=== PATIENT | male | born 1940 | race Caucasian/White ===

== ENCOUNTER → 2016-11-17 | Outpatient (CLI) | payer MEDICARE | LOC: OD 15:44 | PROVIDERS: ATTEND Urology | DX: N40.0 Benign prostatic hyperplasia without lower urinary tract symptoms (principal) | CPT/HCPCS: 36415; 84153 ==

== ENCOUNTER → 2018-01-17 | Outpatient (CLI) | payer MEDICARE | LOC: OD 10:02 | PROVIDERS: ATTEND Urology | DX: N40.1 Benign prostatic hyperplasia with lower urinary tract symptoms (principal); R33.8 Other retention of urine | CPT/HCPCS: 36415; 84153 ==

== ENCOUNTER 2018-07-04 23:12 | Emergency (ER) | payer MEDICARE ==
--- NOTE | 2018-07-04 23:50 | RADIOLOGY REPORT (SQ) ---
2 VIEWS OF LEFT RIBS AND AP CHEST HISTORY: Rib pain. COMPARISON: None. FINDINGS/IMPRESSION: Nondisplaced fracture of the left posterior 6th and 7th ribs. The surrounding lungs are clear. No pneumothorax or pleural effusions are seen. IMPRESSION: Nondisplaced fractures of the left posterior 6th and 7th ribs.
[2018-07-05] MEDS ORDERED: HYDROCODONE/ACETAMINOPHEN 10-325 MG TABLET PO ONE (00:12)
[2018-07-05 01:09] LABS: ABSOLUTE EOSINOPHILS # (AUTO) 0.2 10^3/uL (0.0-0.6); ABSOLUTE LYMPHOCYTES (AUTO) 1.5 10^3/uL (0.5-4.7); ABSOLUTE MONOCYTES (AUTO) 0.8 10^3/uL (0.1-1.4); ABSOLUTE NEUT (AUTO) 6.1 10^3/uL (1.7-8.2); BASOPHILS % (AUTO) 0.5 % (0-2); EOSINOPHILS % (AUTO) 2.5 % (0-6); HEMATOCRIT 47.1 % (37.9-51.0); HEMOGLOBIN 16.3 g/dL (13.5-17.0); LYMPHOCYTES % (AUTO) 16.9 % (13-45); MEAN CORPUSCULAR HEMOGLOBIN 30.8 pg (27.0-33.4); MEAN CORPUSCULAR HGB CONC 34.7 g/dL (32.0-36.0); MEAN CORPUSCULAR VOLUME 89 fl (80-97); MONOCYTES % (AUTO) 9.5 % (3-13); PLATELET COUNT 289 10^3/uL (150-450); RED CELL DISTRIBUTION WIDTH 14.1 % (11.5-14.0); SEGMENTED NEUTROPHILS % (AUTO) 70.6 % (42-78); TOTAL CELLS COUNTED % (AUTO) 100 %; WHITE BLOOD COUNT 8.7 10^3/uL (4.0-10.5)
[2018-07-05 01:28] LABS: ALANINE AMINOTRANSFERASE 43 U/L (21-72); ALKALINE PHOSPHATASE 57 U/L (38-126); ANION GAP 10 (5-19); ASPARTATE AMINO TRANSFERASE 38 U/L (17-59); BILIRUBIN,DIRECT 0.3 mg/dL (0.0-0.4); BILIRUBIN,TOTAL 1.5 mg/dL (0.2-1.3); BLOOD UREA NITROGEN 25 mg/dL (7-20); CALCIUM 9.6 mg/dL (8.4-10.2); CARBON DIOXIDE 29 mmol/L (22-30); CHLORIDE 99 mmol/L (98-107); GLUCOSE 105 mg/dL (75-110); SODIUM 138.2 mmol/L (137-145); TOTAL PROTEIN 6.9 g/dL (6.3-8.2)
--- NOTE | 2018-07-05 02:11 | RADIOLOGY REPORT (SQ) ---
EXAM DESCRIPTION: CT CHEST WITH IV CONTRAST COMPLETED DATE/TME: 07/05/2018 00:37 CLINICAL HISTORY: 78 years, Male, fall, rib fx, on blood thinners COMPARISON: None. TECHNIQUE: Axial CT images of the chest were obtained after administration of IV contrast. DL 1242 Images stored on PACS. All CT scanners at this facility use dose modulation, iterative reconstruction, and/or weight based dosing when appropriate to reduce radiation dose to as low as reasonably achievable (ALARA). [facility]: Dose Right [facility]: CareDose [facility]: Dose Right [facility]: Teradose 4D [facility]: [employer] LIMITATIONS: None. FINDINGS: Upper abdomen: Partially imaged. Cholelithiasis. A left renal cyst is partially visualized. Thoracic aorta: Unremarkable. Heart: Atherosclerotic calcifications of the coronary arteries Mediastinum: No pathologic sized middle mediastinal lymphadenopathy. Tracheobronchial tree: Unremarkable. Lungs: Lobar consolidation: Negative. Pleural effusion: Negative. Pneumothorax: Negative. Other: Negative. Bones: There are nondisplaced fractures involving the left sixth and seventh ribs. IMPRESSION: Nondisplaced fractures involving the left ribs with no underlying pulmonary contusion or pneumothorax. Cholelithiasis. TECHNICAL DOCUMENTATION: Quality ID # [id number]: Final reports with documentation of one or more dose reduction techniques (e.g., Automated exposure control, adjustment of the mA and/or kV according to patient size, use of iterative reconstruction technique) copyright 2011 [employer]- All Rights Reserved
--- NOTE | 2018-07-05 02:25 | ER Document Report ---
ED Fall - General Chief Complaint: Fall Injury Stated Complaint: FALL/LEFT SIDE PAIN Time Seen by Provider: 07/04/18 23:37 Notes: Patient is a 70-year-old male presents to the emergency department complaining of left rib pain. Patient states he tripped and fell onto the concrete 2 days ago landing on his left side. Patient states he has had increased pain ever since. States it hurts to take a deep breath or cough. Patient denies hitting his head, neck, back. States his only pain is in his left anterior ribs. Past medical history: COPD, hypertension, diabetes, hyperlipidemia chronic back pain, H medications: Eliquis, Symbicort, Spiriva, HCTZ, omeprazole, losartan, simvastatin, morphine allergies: None TRAVEL OUTSIDE OF THE [place] IN LAST 30 DAYS: No - Related data Allergies/Adverse Reactions: No Known Allergies Allergy (Verified 06/24/15 17:52) Past Medical History - General Information source: Patient - Social History Smoking Status: Former Smoker Family History: Arthritis Patient has suicidal ideation: No Patient has homicidal ideation: No - Past Medical History Cardiac Medical History: Reports: Hx Atrial Fibrillation, Hx Congestive Heart Failure - 4 yrs ago, Hx Coronary Artery Disease, Hx Heart Attack - Small, Hx Hypercholesterolemia, Hx Hypertension - controlled with meds Pulmonary Medical History: Reports: Hx COPD, Hx Sleep Apnea Neurological Medical History: Renal/ Medical History: Denies: Hx Peritoneal Dialysis Malignancy Medical History: Reports Hx Prostate Cancer GI Medical History: Reports: Hx Gastroesophageal Reflux Disease, Hx Colonoscopy, Hx Endoscopy Musculoskeletal Medical History: Reports Hx Musculoskeletal Deformity, Reports Hx Musculoskeletal Trauma Traumatic Medical History: Reports: Hx Fractures Infectious Medical History: Past Surgical History: Reports: Hx Genitourinary Surgery - Partial prostatectomy, patient circumcised himself so that he had to have m, Hx Oral Surgery - Jaw surgery, Hx Orthopedic Surgery - MULTIPLE JOINT REPLACEMENTS bilateral knees left hip left shoulder - Immunizations Hx Diphtheria, Pertussis, Tetanus Vaccination: Yes - "6 years ago" Review of Systems - Review of Systems Constitutional: No symptoms reported EENT: No symptoms reported Cardiovascular: See HPI Respiratory: No symptoms reported Gastrointestinal: No symptoms reported Genitourinary: No symptoms reported Male Genitourinary: No symptoms reported Musculoskeletal: See HPI Skin: No symptoms reported Hematologic/Lymphatic: No symptoms reported Neurological/Psychological: No symptoms reported Physical Exam - Vital signs Vitals: Temp Pulse Resp BP Pulse Ox 97.7 F 72 16 143/76 H 92 07/04/18 23:18 18 23:18 18 23:18 18 23:18 07/04/18 23:18 - Notes Notes: GENERAL: Alert, interacts well. No acute distress. HEAD: Normocephalic, atraumatic. EYES: Pupils equal, round, and reactive to light. Extraocular movements intact. ENT: Oral mucosa moist, tongue midline. NECK: Full range of motion. Supple. Trachea midline. LUNGS: Clear to auscultation bilaterally, no wheezes, rales, or rhonchi. No respiratory distress. HEART: Regular rate and rhythm. No murmur Chest: No crepitus felt, no erythema or ecchymosis noted to chest anterior posterior. No paradoxical motion noted upon deep inspiration. ABDOMEN: Soft, non-tender. Non-distended. Bowel sounds present in all 4 quadrants. EXTREMITIES: Moves all 4 extremities spontaneously. No edema, normal radial and dorsalis pedis pulses bilaterally. No cyanosis. BACK: no cervical, thoracic, lumbar midline tenderness. No saddle anesthesia, normal distal neurovascular exam. NEUROLOGICAL: Alert and oriented x3. Normal speech. cranial nerves II through XII grossly intact PSYCH: Normal affect, normal mood. SKIN: Warm, dry, normal turgor. No rashes or lesions noted. Course - Re-evaluation Re-evalutation: 07/05/18 02:25 Patient's x-ray did show signs of rib fractures. Due to patient age, fact that he has on Eliquis, the fact that he does have rib fractures a CT chest was ordered. 07/05/18 02:26 CT chest shows consistent sixth and seventh left nondisplaced rib fractures. Shows no signs of pulmonary contusion or pneumothorax. Patient states after medications in the emergency room he no longer has any pain taking it deep breath or upon coughing. Discussed with patient at length criteria to admit him to the hospital for pulmonary toilet. Patient is very adamant about not being admitted. States he will return to the emergency room for any other concerning symptoms. Discussed need to follow-up with primary care provider in the next 24-48 hours. Patient's pulse oximetry is 95% with a good Pleth as I am speaking to him about discharge instructions. Patient is in no respiratory distress, speaking in full sentences, laughing and joking with staff. - Vital Signs Vital signs: Temp Pulse Resp BP Pulse Ox 97.7 F 72 20 118/75 93 07/04/18 23:18 07/04/18 23:18 07/05/18 01:00 07/05/18 00:01 07/05/18 01:00 - Laboratory Result Diagrams: 07/05/18 00:55 07/05/18 00:55 Laboratory results interpreted by me: 07/05/18 07/05/18 00:55 00:55 RDW 14.1 H BUN 25 H Total Bilirubin 1.5 H Discharge - Discharge Clinical Impression: Ribs, multiple fractures Qualifiers: Encounter type: initial encounter Fracture type: closed Laterality: left Qualified Code(s): S22.42XA - Multiple fractures of ribs, left side, initial encounter for closed fracture Condition: Stable Disposition: HOME, SELF-CARE Instructions: Rib Injuries and Fractures ([facility]) Additional Instructions: As we discussed you have been seen and treated in the emergency department for rib fractures. Please use the incentive spirometer we have given you as discussed. Please also take pain medication to prevent a possible pneumonia. Should you develop increased pain, shortness of breath, increased cough, fever o r any other concerning symptoms please return to the emergency room. Prescriptions: Docusate Sodium [Colace] 100 mg PO DAILY #30 capsule Hydrocodone/Acetaminophen [[place] 10-325 mg Tablet] 1 tab PO Q6 #20 tablet Referrals: JOSE MIGUEL FRYE MD [Primary Care Provider] - Follow up as needed
[2018-07-05 02:29] VITALS: BP 115/86
== END 2018-07-05 02:40 | disposition home or self-care (01) ==
LOC: ER 23:12
DX: S22.42XA Multiple fractures of ribs, left side, initial encounter for closed fracture (principal); R07.81 Pleurodynia; W01.0XXA Fall on same level from slipping, tripping and stumbling without subsequent striking against object, initial encounter; R07.89 Other chest pain; J44.9 Chronic obstructive pulmonary disease, unspecified; E78.00 Pure hypercholesterolemia, unspecified; E11.9 Type 2 diabetes mellitus without complications; G89.29 Other chronic pain; M54.9 Dorsalgia, unspecified; I48.91 Unspecified atrial fibrillation; I50.9 Heart failure, unspecified; I11.0 Hypertensive heart disease with heart failure; I25.2 Old myocardial infarction; Z79.02 Long term (current) use of antithrombotics/antiplatelets; Z88.6 Allergy status to analgesic agent; Z85.46 Personal history of malignant neoplasm of prostate
CPT/HCPCS: 99284; 36415; 85025; 80053; 71101; 71260; A9270